=== PATIENT | male | born 1980 | race Caucasian/White ===

== ENCOUNTER → 2020-02-09 | Outpatient (CLI) | payer OTHER ==
[~2020-02-09] MED LIST: TYLENOL
== END | disposition home or self-care (01) ==
LOC: STAR 12:13
PROVIDERS: ATTEND Anesthesiology
DX: Z01.812 Encounter for preprocedural laboratory examination (principal); Z20.828 Contact with and (suspected) exposure to other viral communicable diseases
CPT/HCPCS: 36415; 87635

== ENCOUNTER 2020-02-11 05:29 | Day surgery (SDC) | payer OTHER ==
[~2020-02-11] VITALS: Ht 177.8 cm; Wt 99.1 kg
[2020-02-11] MEDS ORDERED: CHLORHEXIDINE 15 ML UDC MM STA (06:13)
[2020-02-11] MEDS ORDERED: LACTATED RINGERS 1,000 ML IV ONE (06:13)
[2020-02-11 06:27] VITALS: BP 145/91
[2020-02-11] MEDS ORDERED: LIDOCAINE/PF 1%, 30ML ONE (06:54)
[2020-02-11] MEDS ORDERED: BUPIVACAINE/PF 0.5% ONE (06:54)
[2020-02-11] MEDS ORDERED: TYLENOL (07:05)
[2020-02-11 07:23] LABS: BASOPHILS % (AUTO) 1 % (0-1); EOSINOPHILS % (AUTO) 2 % (1-7); LYMPHOCYTES % (AUTO) 31 % (22-44); MEAN CORPUSCULAR HGB CONC 31.1 g/dL (33.2-36.2); MEAN PLATELET VOLUME 8.7 fL (7.4-10.4); MONOCYTES % (AUTO) 7 % (2-9); NEUTROPHILS % (AUTO) 59 % (42-75); PLATELET COUNT 207 x10^3/uL (130-400); RED BLOOD COUNT 6.15 x10^6/uL (4.38-5.82)
[2020-02-11] MEDS ORDERED: PROPOFOL 50 ML ONE ×2 (07:24→08:49)
[2020-02-11] MEDS ORDERED: MIDAZOLAM 1 MG/ML, 2ML ONE (07:25)
[2020-02-11] MEDS ORDERED: FENTANYL PF 250 MCG/5ML ONE (07:25)
[2020-02-11 07:28] LABS: ANION GAP 6 mmol/L (5-15); CALCIUM 8.8 mg/dL (8.5-10.1); CHLORIDE 111 mmol/L (98-107)
[2020-02-11 07:29] LABS: CREATININE 0.75 mg/dL (0.7-1.3)
[2020-02-11] MEDS ORDERED: CEFAZOLIN 1,000 MG ONE (07:51)
[2020-02-11 07:52] LABS: MD MORPH REVIEW ONLY
[2020-02-11 08:20] LABS: INTERNATIONAL NORMALIZED RATIO 1.12 (0.93-1.1); PROTHROMBIN TIME 11.9 Seconds (9.6-11.5)
[2020-02-11 08:29] LABS: ANISOCYTOSIS 1+; HYPOCHROMIA 1+; MICROCYTOSIS 1+; OVALOCYTES 1+
[2020-02-11 08:30] LABS: <PLATELET ESTIMATE> ADEQUATE; <PLT MORPHOLOGY> NORMAL PLT MORPH
[2020-02-11] MEDS ORDERED: PROMETHAZINE 25 MG SUPP PR PRN (08:30)
[2020-02-11] MEDS ORDERED: ONDANSETRON 2MG/ML, 2ML IVPush PRN (08:30)
[2020-02-11] MEDS ORDERED: EPHEDRINE 50 MG/ML, 1ML IM PRN (08:30)
[2020-02-11] MEDS ORDERED: FENTANYL PF 100 MCG/2ML IV PRN (08:30)
[2020-02-11] MEDS ORDERED: ACETAMINOPHEN 325 MG TABLET PO PRN (08:30)
[2020-02-11] MEDS ORDERED: KETOROLAC 30 MG/1 ML IVPush PRN (08:30)
[2020-02-11] MEDS ORDERED: EPHEDRINE 50 MG/ML, 1ML IVPush PRN (08:30)
[2020-02-11] MEDS ORDERED: MEPERIDINE/PF 25MG/0.5ML IVPush PRN (08:30)
[2020-02-11] MEDS ORDERED: DIAZEPAM 5 MG/ML, 2ML IVPush PRN (08:30)
[2020-02-11] MEDS ORDERED: morphine SULFATE 10 MG/ML, 1ML IVPush PRN (08:30)
[2020-02-11] MEDS ORDERED: LABETALOL 5MG/ML, 20ML IV PRN (08:30)
[2020-02-11] MEDS ORDERED: DIPHENHYDRAMINE 50 MG/ML, 1ML IVPush PRN (08:30)
[2020-02-11] MEDS ORDERED: OXYcodone 5 MG/5 ML ORAL.SOL UDC PO PRN (08:30)
[2020-02-11] MEDS ORDERED: PROMETHAZINE 25 MG/ML, 1ML IVPush PRN (08:30)
[2020-02-11] MEDS ORDERED: ONDANSETRON 2MG/ML, 2ML ONE (09:19)
[2020-02-11] MEDS ORDERED: DEXAMETHASONE 4 MG/ML, 1ML ONE (09:19)
[2020-02-11] MEDS ORDERED: MEPERIDINE/PF 25MG/ML,1ML ONE (10:24)
[2020-02-11] MEDS ORDERED: OXYcodone 5 MG/5 ML ORAL.SOL UDC ONE (10:24)
== END 2020-02-11 12:35 | disposition home or self-care (01) ==
LOC: OUT 05:29
PROVIDERS: ATTEND Urology
DX: N43.3 Hydrocele, unspecified (principal); Z20.828 Contact with and (suspected) exposure to other viral communicable diseases; F17.210 Nicotine dependence, cigarettes, uncomplicated; Z79.01 Long term (current) use of anticoagulants; Z79.899 Other long term (current) drug therapy
CPT/HCPCS: 36415; 55040; 80048; 85025; 85610; 87635; 88302; J0690; J1100; J2175; J2250; J2405; J2704; J3010; J7120